=== PATIENT | male | born 1955 | race Caucasian/White ===

== ENCOUNTER → 2017-05-14 | Outpatient (CLI) | payer BC ==
--- NOTE | 2017-05-15 10:28 | US ---
History: Right upper quadrant pain, abnormal MRI Study: Ultrasound liver Findings: Ultrasound of the right upper quadrant demonstrates only limited visualization of the head and body region of the pancreas. The liver is diffusely increased in echogenicity consistent with fat ty infiltration. Within the right posterior aspect of the left lobe of the liver is a well-circumscri bed 3.6 x 2.8 cm cyst with through transmission. The gallbladder is surgically absent. The common can e duct measures 7 mm. Note is made of a right renal cyst measuring 2.6 cm in greatest dimension. Impression: Benign hepatic cyst. Right renal cysts. Probable fatty infiltration of the liver. Previous cholecystectomy. Reported By:
== END ==
LOC: RAD 10:45
PROVIDERS: ATTEND Internal Medicine
DX: R93.5 Abnormal findings on diagnostic imaging of other abdominal regions, including retroperitoneum (principal)
CPT/HCPCS: 76705